=== PATIENT | female | born 1995 | race African-American/Black ===

== ENCOUNTER 2024-12-31 18:13 | Emergency (ER) | payer OTHER ==
[~2024-12-31] VITALS: Ht 175.3 cm; Wt 126.5 kg
[2024-12-31 18:16] VITALS: TEMP 98.9
[2024-12-31] MEDS ORDERED: ACET500T58 PO (20:39)
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
[2024-12-31 20:52] VITALS: BP 130/86; PULSE 92; RESP 18; O2SAT 98
== END 2024-12-31 21:03 | disposition home or self-care (01) ==
LOC: ER 18:13
DX: S60.222A Contusion of left hand, initial encounter (principal); Z79.899 Other long term (current) drug therapy; V43.52XA Car driver injured in collision with other type car in traffic accident, initial encounter; Y93.89 Activity, other specified; Y92.488 Other paved roadways as the place of occurrence of the external cause; Y99.8 Other external cause status